=== PATIENT | female | born 1940 | race Two or more races ===

== ENCOUNTER → 2018-02-10 07:15 | Outpatient (CLI) | payer OTHER ==
[~2018-02-10 07:15] MED LIST: CATAFLAM50 MG PO; MELOXICAM15 MG; METFORMIN HCL500 M1 PO; ORPH100T PO; PRILOSEC20 MG PO; SYNTHROID50 MCG PO; VASOTEC5 MG
== END | disposition home or self-care (01) ==
LOC: LAB 07:15
DX: E78.2 Mixed hyperlipidemia (principal); E11.65 Type 2 diabetes mellitus with hyperglycemia; D68.8 Other specified coagulation defects; D64.89 Other specified anemias; E03.8 Other specified hypothyroidism; E03.3 Postinfectious hypothyroidism; Z12.11 Encounter for screening for malignant neoplasm of colon

== ENCOUNTER 2018-05-01 07:05 | Outpatient (CLI) | payer OTHER | END 2018-05-01 11:10 | disposition home or self-care (01) | LOC: TOM 07:05 | DX: Z86.010 Personal history of colon polyps (principal); K57.30 Diverticulosis of large intestine without perforation or abscess without bleeding; K80.80 Other cholelithiasis without obstruction ==

== ENCOUNTER → 2018-09-01 10:19 | Outpatient (CLI) | payer OTHER | END | disposition home or self-care (01) | LOC: LAB 10:19 | DX: E03.8 Other specified hypothyroidism (principal); E11.21 Type 2 diabetes mellitus with diabetic nephropathy; D68.8 Other specified coagulation defects; N39.0 Urinary tract infection, site not specified; E11.65 Type 2 diabetes mellitus with hyperglycemia; E78.2 Mixed hyperlipidemia; I11.9 Hypertensive heart disease without heart failure; I10 Essential (primary) hypertension; I50.89 Other heart failure ==

== ENCOUNTER 2018-09-09 13:05 | Outpatient (CLI) | payer OTHER | END 2018-09-09 13:15 | disposition home or self-care (01) | LOC: NUCLEAR 13:05 | DX: I80.03 Phlebitis and thrombophlebitis of superficial vessels of lower extremities, bilateral (principal) ==

== ENCOUNTER 2019-01-04 15:11 | Emergency (ER) | payer OTHER ==
[~2019-01-04] VITALS: Ht 152.4 cm; Wt 100.7 kg
== END 2019-01-04 23:50 | disposition home or self-care (01) ==
LOC: ER 15:11
DX: M62.830 Muscle spasm of back (principal)

== ENCOUNTER 2019-01-07 09:12 | Outpatient (CLI) | payer OTHER | END 2019-01-07 09:18 | disposition home or self-care (01) | LOC: LAB 09:12 | DX: E11.65 Type 2 diabetes mellitus with hyperglycemia (principal); E03.8 Other specified hypothyroidism; E78.2 Mixed hyperlipidemia; D68.8 Other specified coagulation defects; E11.21 Type 2 diabetes mellitus with diabetic nephropathy ==

== ENCOUNTER 2019-01-14 06:31 | Outpatient (CLI) | payer OTHER | END 2019-01-14 15:00 | disposition home or self-care (01) | LOC: LAB 06:31 | DX: N39.0 Urinary tract infection, site not specified (principal); B99.8 Other infectious disease ==

== ENCOUNTER 2019-01-14 07:43 | Outpatient (CLI) | payer OTHER | END 2019-01-14 07:58 | disposition home or self-care (01) | LOC: RAD 07:43 | DX: S32.000S Wedge compression fracture of unspecified lumbar vertebra, sequela (principal) ==

== ENCOUNTER 2019-01-14 08:09 | Outpatient (CLI) | payer OTHER | END 2019-01-14 08:14 | disposition home or self-care (01) | LOC: SONOGRAMA 08:09 → MAMO-SONO 08:15 | DX: M75.102 Unspecified rotator cuff tear or rupture of left shoulder, not specified as traumatic (principal) ==

== ENCOUNTER 2019-12-17 11:59 | Emergency (ER) | payer OTHER ==
[~2019-12-17] VITALS: Ht 127 cm; Wt 97.5 kg
== END 2019-12-17 17:44 | disposition home or self-care (01) ==
LOC: ER 11:59
DX: J45.998 Other asthma (principal)

== ENCOUNTER → 2020-01-20 06:24 | Outpatient (CLI) | payer OTHER | END | disposition home or self-care (01) | LOC: LAB 06:24 | DX: E78.2 Mixed hyperlipidemia (principal); I10 Essential (primary) hypertension; E11.9 Type 2 diabetes mellitus without complications; E03.8 Other specified hypothyroidism; Z12.11 Encounter for screening for malignant neoplasm of colon ==

== ENCOUNTER 2020-08-12 17:07 | Emergency (ER) | payer OTHER ==
[~2020-08-12] VITALS: Ht 152.4 cm; Wt 100.2 kg
[2020-08-12] MEDS ORDERED: CHILDREN'S ASPI81 MG (17:22)
== END 2020-08-12 21:09 | disposition home or self-care (01) ==
LOC: ER 17:07
DX: M77.52 Other enthesopathy of left foot and ankle (principal); M77.51 Other enthesopathy of right foot and ankle

== ENCOUNTER 2020-09-14 09:19 | Outpatient (CLI) | payer OTHER ==
[~2020-09-14 09:19] MED LIST changes: +CHILDREN'S ASPI81 MG
== END 2020-09-14 09:26 | disposition home or self-care (01) ==
LOC: LAB 09:19
PROVIDERS: ATTEND Internal Medicine Cardiovascular Disease
DX: I10 Essential (primary) hypertension (principal); E11.9 Type 2 diabetes mellitus without complications; E03.8 Other specified hypothyroidism; E78.2 Mixed hyperlipidemia; N39.0 Urinary tract infection, site not specified

== ENCOUNTER 2021-03-02 09:34 | Emergency (ER) | payer OTHER ==
[~2021-03-02] VITALS: Ht 154.9 cm; Wt 100.2 kg
== END 2021-03-02 14:57 | disposition home or self-care (01) ==
LOC: ER 09:34 → CPU-OBS 09:37 → ER 09:37
DX: R07.89 Other chest pain (principal); Z03.818 Encounter for observation for suspected exposure to other biological agents ruled out

== ENCOUNTER 2021-08-02 08:27 | Emergency (ER) | payer OTHER ==
[~2021-08-02] VITALS: Ht 152.4 cm; Wt 100.2 kg
== END 2021-08-02 19:15 | disposition home or self-care (01) ==
LOC: ER 08:27 → CPU-OBS 08:30 → ER 19:15
DX: R07.89 Other chest pain (principal)

== ENCOUNTER 2024-09-23 09:56 | Outpatient (CLI) | payer OTHER | END 2024-09-23 10:04 | disposition home or self-care (01) | LOC: SONOGRAMA 09:56 | PROVIDERS: ATTEND Internal Medicine Cardiovascular Disease | DX: E03.9 Hypothyroidism, unspecified (principal); R13.10 Dysphagia, unspecified ==

== ENCOUNTER 2024-10-02 15:19 | Emergency (ER) | payer OTHER ==
[~2024-10-02] VITALS: Ht 152.4 cm; Wt 95.7 kg
[2024-10-02] MEDS ORDERED: TRULICITY1.5 MG/0.5 SQ (15:49)
[2024-10-02] MEDS ORDERED: GABAPENTIN300 M2 PO (15:50)
[2024-10-02] MEDS ORDERED: CEFTRIAXONE SODIUM 1,000 MG VIAL IM STA (16:33)
[2024-10-02] MEDS ORDERED: KETOROLAC TROMETHAMINE 15 MG VIAL IM STA (16:36)
[2024-10-02 17:32] LABS: HEMOGLOBIN 12.5 g/dL (12.0-15.00); MEAN CELL VOLUME 90.5 fL (80.00-100.00); MEAN CORPUSCULAR HEMOGLOBIN 29.7 pg (27.00-32.0); MEAN CORPUSCULAR HGB CONC 32.8 g/dl (32.0-36.0); PLATELET COUNT 216 K/uL (150-450); RED CELL DISTRIBUTION WIDTH 14.4 % (11.5-14.5)
[2024-10-02 17:59] LABS: CREATININE SERUM 0.94 mg/dL (0.55-1.02); GFR 56.59; POTASSIUM 4.45 mEq/L (3.5-5.1)
== END 2024-10-02 18:41 | disposition home or self-care (01) ==
LOC: ER 15:21
PROVIDERS: General Practice
DX: R22.1 Localized swelling, mass and lump, neck (principal)
CPT/HCPCS: 36415; 96372; 99282; J0696; J1885

== ENCOUNTER 2024-12-02 10:44 | Outpatient (CLI) | payer OTHER ==
[~2024-12-02 10:44] MED LIST changes: +GABAPENTIN300 M2 PO; +TRULICITY1.5 MG/0.5 SQ
== END 2024-12-02 10:46 | disposition home or self-care (01) ==
LOC: TOM 10:44
PROVIDERS: ATTEND Internal Medicine Cardiovascular Disease
DX: J03.90 Acute tonsillitis, unspecified (principal); E04.1 Nontoxic single thyroid nodule